=== PATIENT | female | born 1990 ===

== ENCOUNTER 2024-12-05 05:57 | Day surgery (SDC) | payer OTHER ==
[~2024-12-05 05:57] MED LIST: BUTALBIT-ACETA1 EACH PO; DICY20TA PO; OMEPRAZOLE40 MG PO; PEPCID AC20 MG PO
[2024-12-05] MEDS ORDERED: METRONIDAZOLE/SODIUM CHLORIDE 500 MG/100 ML PIGGYBACK IV ONE (07:23)
[2024-12-05] MEDS ORDERED: HEMOSTATIC MATRIX 1 KIT KIT TOP ONE (08:36)
[2024-12-05] MEDS ORDERED: LIDOCAINE HCL 1%/EPINEPHRINE 20ML VIAL IJ ONE (08:36)
[2024-12-05] MEDS ORDERED: POVIDONE-IODINE 118 ML BOTT TOP ONE (08:36)
[2024-12-05] MEDS ORDERED: TRIAMCINOLONE ACETONIDE 40 MG/ML VIAL IJ ONE (10:00)
[2024-12-05] MEDS ORDERED: MORPHINE SULFATE 4 MG/ML VIAL IV ONE ×2 (14:45→15:15)
== END 2024-12-05 16:00 | disposition home or self-care (01) ==
LOC: CIR.AMB 05:57
PROVIDERS: ATTEND Colon & Rectal Surgery
DX: K64.2 Third degree hemorrhoids (principal); K64.4 Residual hemorrhoidal skin tags; K62.2 Anal prolapse